=== PATIENT | female | born 1985 | race Caucasian/White ===

== ENCOUNTER 2018-03-03 18:38 | Emergency (ER) | payer SELFPAY ==
[2018-03-03 18:47] VITALS: BP 132/84
[2018-03-03] MEDS ORDERED: PENICILLIN G BENZATHINE 1.2 MILLION UNIT/2 ML DISP.SYRIN IM ONE (19:22)
[2018-03-03] MEDS ORDERED: DEXAMETHASONE SOD PHOS INJ 10 MG/1 ML VIAL IM ONE (19:22)
--- NOTE | 2018-03-03 19:28 | ER Document Report ---
HPI - HPI Patient complains to provider of: sore throat Pain Level: 3 Context: Patient is a 32-year-old otherwise healthy female complaining of a sore throat and body aches 5 days. Patient has had subjective fever. Hurts to swallow. No known strep exposure. Associated Symptoms: Body/muscle aches, Headache Exacerbated by: Denies Relieved by: Denies - ROS Systems Reviewed and Negative: Yes All other systems reviewed and negative - CONSTITUTIONAL Constitutional: REPORTS: Fever - EENT EENT: REPORTS: Sore Throat - NEURO Neurology: REPORTS: Headache Past Medical History - General Information source: Patient - Social History Smoking Status: Current Some Day Smoker Frequency of alcohol use: Social Drug Abuse: None Lives with: Family Family History: Reviewed & Not Pertinent Vertical Provider Document - CONSTITUTIONAL Agree With Documented VS: Yes Exam Limitations: No Limitations - INFECTION CONTROL TRAVEL OUTSIDE OF THE [place] IN LAST 30 DAYS: No - HEENT HEENT: Atraumatic, PERRLA, Pharyngeal Exudate, Pharyngeal Tenderness, Pharyngeal Erythema - NECK Neck: Normal Inspection, Lymphadenopathy-Right - RESPIRATORY Respiratory: Breath Sounds Normal, No Respiratory Distress - CARDIOVASCULAR Cardiovascular: Regular Rate, Regular Rhythm - GI/ABDOMEN Gastrointestinal: Abdomen Soft - NEURO Level of Consciousness: Awake, Alert, Appropriate - DERM Integumentary: Warm, Dry, No Rash Course - Re-evaluation Re-evalutation: 03/03/18 19:29 No signs of peritonsillar abscess, epiglottitis. No airway compromise. Patient able to swallow and talk without difficulty. History and physical are consistent with strep tonsillitis. Patient has no money and no means of getting descriptions filled. Medicated with 1.2 million units Bicillin IM and Decadron 10 mg IM in the ED. Home care, PC and follow-up and ED return precautions discussed with patient. Patient agreeable with plan and stable for discharge - Vital Signs Vital signs: Temp Pulse Resp BP Pulse Ox 97.6 F 75 16 132/84 H 100 03/03/18 18:41 03/03/18 18:41 03/03/18 18:41 03/03/18 18:41 03/03/18 18:41 Discharge - Discharge Clinical Impression: Sore throat Condition: Stable Disposition: HOME, SELF-CARE Instructions: Antibiotic Shot ([facility]), Steroid Medication Injection Additional Instructions: lozenges, salt water gargles change toothbrush in 2 days rest and hydrate Follow-up with your primary care if symptoms persist Return to ED for any worsening of symptoms
== END 2018-03-03 20:00 | disposition home or self-care (01) ==
LOC: ER 18:38
DX: J02.9 Acute pharyngitis, unspecified (principal); M79.1 Myalgia; R51 Headache; F17.200 Nicotine dependence, unspecified, uncomplicated
CPT/HCPCS: 99282; 96372; J0561; J1100

== ENCOUNTER 2018-06-05 16:21 | Emergency (ER) | payer SELFPAY ==
[2018-06-05 16:57] LABS: AMORPHOUS SEDIMENT,URINE TRACE /HPF; APPEARANCE,URINE SLIGHTLY-CLOUDY; BILIRUBIN,URINE NEGATIVE (NEGATIVE); COLOR,URINE AMBER; GLUCOSE, URINE NEGATIVE (NEGATIVE); KETONES,URINE NEGATIVE (NEGATIVE); LEUKOCYTE ESTERASE,URINE LARGE (NEGATIVE); NITRITE,URINE POSITIVE (NEGATIVE); PROTEIN,URINE 100 mg/dL (NEGATIVE); URINE SPECIFIC GRAVITY 1.015
[2018-06-05] MEDS ORDERED: LIDOCAINE 1% INJ-PF (10 MG/ML) 30 ML SDV INFIL ONE (17:13)
[2018-06-05] MEDS ORDERED: CEFTRIAXONE INJ 1000 MG VIAL IM ONE (17:13)
--- NOTE | 2018-06-05 17:15 | ER Document Report ---
ED General - General Chief Complaint: Pain With Urination Stated Complaint: URINARY ISSUES Time Seen by Provider: 06/05/18 16:45 TRAVEL OUTSIDE OF THE [place] IN LAST 30 DAYS: No - HPI Patient complains to provider of: Dysuria Notes: Patient coming in for dysuria frequency hesitancy ongoing for approximately 1 week with no relief of Azo. Denies any fevers chills flank pain patient resting healthy upon my evaluation. - Related Data Allergies/Adverse Reactions: Iodinated Contrast- Oral and IV Dye Allergy (Verified 06/05/18 16:47) NSAIDS (Non-Steroidal Anti-Inflamma Allergy (Verified 06/05/18 16:47) Past Medical History - Social History Smoking Status: Current Some Day Smoker Chew tobacco use (# tins/day): No Frequency of alcohol use: Rare Drug Abuse: None Family History: Reviewed & Not Pertinent Patient has suicidal ideation: No Patient has homicidal ideation: No Renal/ Medical History: Denies: Hx Peritoneal Dialysis Past Surgical History: Reports: Hx Appendectomy, Hx Bowel Surgery - gastric bypass, Hx Cholecystectomy, Hx Hysterectomy Review of Systems - Review of Systems Constitutional: No symptoms reported EENT: No symptoms reported Cardiovascular: No symptoms reported Respiratory: No symptoms reported Gastrointestinal: No symptoms reported Genitourinary: Dysuria, Frequency, Hematuria, Urgency Female Genitourinary: No symptoms reported Musculoskeletal: No symptoms reported Skin: No symptoms reported Hematologic/Lymphatic: No symptoms reported Neurological/Psychological: No symptoms reported -: Yes All other systems reviewed and negative Physical Exam - Vital signs Vitals: Temp Pulse Resp BP Pulse Ox 98.0 F 85 16 130/69 H 100 06/05/18 16:38 06/05/18 16:38 06/05/18 16:38 06/05/18 16:38 06/05/18 16:38 Interpretation: Normal - General General appearance: Appears well, Alert - HEENT Head: Normocephalic, Atraumatic Eyes: Normal Pupils: PERRL - Respiratory Respiratory status: No respiratory distress Chest status: Nontender Breath sounds: Normal Chest palpation: Normal - Cardiovascular Rhythm: Regular Heart sounds: Normal auscultation Murmur: No - Abdominal Inspection: Normal Distension: No distension Bowel sounds: Normal Tenderness: Nontender Organomegaly: No organomegaly - Back Back: Normal, Nontender - Extremities General upper extremity: Normal inspection, Nontender, Normal color, Normal ROM , Normal temperature General lower extremity: Normal inspection, Nontender, Normal color, Normal ROM , Normal temperature, Normal weight bearing. No: Suzan's sign - Neurological Neuro grossly intact: Yes Cognition: Normal Orientation: AAOx4 Perry Coma Scale Eye Opening: Spontaneous Perry Coma Scale Verbal: Oriented Cyndy Coma Scale Motor: Obeys Commands Perry Coma Scale Total: 15 Speech: Normal Motor strength normal: LUE, RUE, LLE, RLE Sensory: Normal - Psychological Associated symptoms: Normal affect, Normal mood - Skin Skin Temperature: Warm Skin Moisture: Dry Skin Color: Normal Course - Re-evaluation Re-evalutation: 06/05/18 20:47 Urinalysis does show signs of urinary tract infection with hematuria. Because of the timing of the results I recommended to the patient that she receive a IM shot of Rocephin prescription for ciprofloxacin that she can filler picker tomorrow W patient will have 24 hours of antibiotic coverage. Patient agrees with this treatment course patient will be discharged home. - Vital Signs Vital signs: Temp Pulse Resp BP Pulse Ox 98.0 F 96 18 118/61 98 06/05/18 17:17 06/05/18 17:17 06/05/18 17:17 06/05/18 17:17 06/05/18 17:17 - Laboratory Laboratory results interpreted by me: 06/05/18 16:35 Urine Protein 100 H Urine Blood SMALL H Urine Nitrite POSITIVE H Urine Urobilinogen 2.0 H Ur Leukocyte Esterase LARGE H Urine Ascorbic Acid 40 H Discharge - Discharge Clinical Impression: UTI (urinary tract infection) Qualifiers: Urinary tract infection type: acute cystitis Hematuria presence: with hematuria Qualified Code(s): N30.01 - Acute cystitis with hematuria Disposition: HOME, SELF-CARE Instructions: Urinary Tract Infection ([facility]) Additional Instructions: Your urinalysis does show signs of urinary tract infection. Please take antibiotics to completion. Return to ER symptoms worsen. Prescriptions: Ciprofloxacin HCl [Cipro 500 mg Tablet] 500 mg PO BID #14 tablet Forms: Return to Work
[2018-06-05 17:18] VITALS: BP 118/61
== END 2018-06-05 17:27 | disposition home or self-care (01) ==
LOC: ER 16:21
DX: N30.01 Acute cystitis with hematuria (principal); F17.200 Nicotine dependence, unspecified, uncomplicated; Z98.84 Bariatric surgery status; Z90.49 Acquired absence of other specified parts of digestive tract; Z90.710 Acquired absence of both cervix and uterus
CPT/HCPCS: 99283; 96372; 87086; 81025; 87088; 81001; 87186; J3490; J0696

== ENCOUNTER 2018-12-05 00:37 | Emergency (ER) | payer SELFPAY ==
--- NOTE | 2018-12-05 01:25 | ER Document Report ---
ED General - General Chief Complaint: Cough Stated Complaint: CONGESTION Time Seen by Provider: 12/05/18 01:10 Primary Care Provider: STEWART KRISHNAMURTHY DO [NO LOCAL MD] - Follow up in 3-5 days (primary care. ) Notes: Patient is a 33-year-old female that presents to the emergency department for chief complaint of cough and congestion. Patient states she is been having a cough for the past several days, where she is been having rib pain associated with it, and aching in her back. She is had congestion she is tried Mucinex, without much improvement. She is mainly worried about the cough, not getting much better. She states she has had a sick contact, her has had similar symptoms. She denies any any fevers, chills, night sweats, chest pain, difficulty breathing, nausea, vomiting or abdominal pain. No other complaints at this time. She currently rates her pain as a 3 out of 10, worse with heavy cough. Past Medical History: Seasonal allergies Past Surgical History: Appendectomy, gastric bypass surgery Social History: Former smoker, quit several years ago, denies alcohol or drug use. Family History: Reviewed and noncontributory for presenting illness Allergies: Reviewed, see documented allergy list. REVIEW OF SYSTEMS: Other than noted above, the 12 point review of systems was reviewed with the patient and were negative, all pertinent findings are included in the HPI. PHYSICAL EXAMINATION: Vital signs reviewed, nursing noted reviewed. GENERAL: Well-appearing, well-nourished and in no acute distress. HEAD: Atraumatic, normocephalic. EYES: Eyes appear normal, extraocular movements intact, sclera anicteric, conjunctiva are normal. ENT: nares patent, oropharynx clear without exudates. Moist mucous membranes. NECK: Normal range of motion, supple without lymphadenopathy LUNGS: Breath sounds clear to auscultation bilaterally and equal. No wheezes rales or rhonchi. Dry cough noted on exam. HEART: Regular rate and rhythm without murmurs ABDOMEN: Soft, nontender, normoactive bowel sounds. No rebound, guarding, or rigidity. No masses appreciated. EXTREMITIES: Nontender, good range of motion, no pitting or edema. NEUROLOGICAL: No focal neurological deficits. Moves all extremities spontaneously Motor and sensory grossly intact on exam. PSYCH: Normal mood, normal affect. SKIN: Warm, Dry, normal turgor, no rashes or lesions noted on exposed skin TRAVEL OUTSIDE OF THE [place] IN LAST 30 DAYS: No - Related Data Allergies/Adverse Reactions: Iodinated Contrast- Oral and IV Dye Allergy (Verified 06/05/18 16:47) NSAIDS (Non-Steroidal Anti-Inflamma Allergy (Verified 06/05/18 16:47) Past Medical History - Social History Smoking Status: Unknown if Ever Smoked Family History: Reviewed & Not Pertinent Patient has suicidal ideation: No Patient has homicidal ideation: No Renal/ Medical History: Denies: Hx Peritoneal Dialysis Past Surgical History: Reports: Hx Appendectomy, Hx Bowel Surgery - gastric bypass, Hx Cholecystectomy, Hx Hysterectomy Physical Exam - Vital signs Vitals: Temp Pulse Resp BP Pulse Ox 98.0 F 88 18 125/73 100 12/05/18 00:51 12/05/18 00:51 12/05/18 00:51 12/05/18 00:51 12/05/18 00:51 Course - Re-evaluation Re-evalutation: Patient seen and examined vital signs reviewed. Patient was evaluated and treated as appropriate for the patient's presenting symptoms and complaint, with consideration of any critical or life threatening conditions that may be associated with their obtained history and exam as noted above. Patient was treated with p.o. Robaxin, Tessalon Perle The patient was re-evaluated and was stable, chest x-ray negative for pneumonia Evaluation was most consistent with URI, patient prescribed codeine with mucinex, and given prescription for prednisone to take for 5 days and advised to follow-up with her primary care. Plan of care was discussed with the patient at this point, after careful consideration I feel that that patient can be discharged from the emergency department, the patient was educated treatments and reasons to return to the emergency department based on their presumed diagnosis as noted above, they were advised to followup with a primary care physician in 2-3 days. Patient was agreeable to plan of care. *Note is created using voice recognition software and may contain spelling, syntax or grammatical errors. Chest X-Ray 12/05/18 01:16 IMPRESSION: Negative chest copyright 2011 [employer]- All Rights Reserved - Vital Signs Vital signs: Temp Pulse Resp BP Pulse Ox 98.2 F 86 15 128/70 H 100 12/05/18 02:18 12/05/18 02:18 12/05/18 02:18 12/05/18 02:18 12/05/18 02:18 Discharge - Discharge Clinical Impression: Cough URI (upper respiratory infection) Qualifiers: URI type: unspecified URI Qualified Code(s): J06.9 - Acute upper respiratory infection, unspecified Condition: Stable Disposition: HOME, SELF-CARE Instructions: Upper Respiratory Illness ([facility]) Additional Instructions: Please follow-up with your primary care physician, take all prescribed medications as directed. If your symptoms are worsening, or not improving you should return to the emergency department to be reevaluated. Prescriptions: Codeine Phosphate/Guaifenesin [Codeine-Guaifen 10-100 mg/5 ml] 5 ml PO Q6H PRN #75 PRN Reason: Cough RX: Prednisone [Deltasone 10 mg Tablet] 40 mg PO DAILY #20 tablet Forms: Return to Work Referrals: STEWART KRISHNAMURTHY DO [NO LOCAL MD] - Follow up in 3-5 days (primary care. )
--- NOTE | 2018-12-05 01:46 | RADIOLOGY REPORT (SQ) ---
EXAM DESCRIPTION: XR CHEST 2 VIEWS COMPLETED DATE/TME: 12/05/2018 01:16 CLINICAL HISTORY: 33 years, Female, cough COMPARISON: None. NUMBER OF VIEWS: 2 TECHNIQUE: 2 views of the chest LIMITATIONS: None. FINDINGS: Heart size normal. Lungs clear. No pneumothorax IMPRESSION: Negative chest copyright 2010 [employer]- All Rights Reserved
[2018-12-05] MEDS ORDERED: BENZONATATE 100 MG CAPSULE PO ONE (01:55)
[2018-12-05] MEDS ORDERED: METHOCARBAMOL 750 MG TABLET PO ONE (01:56)
[2018-12-05 02:20] VITALS: BP 128/70
== END 2018-12-05 02:19 | disposition home or self-care (01) ==
LOC: ER 00:37
DX: J06.9 Acute upper respiratory infection, unspecified (principal); Z98.84 Bariatric surgery status; Z90.49 Acquired absence of other specified parts of digestive tract; Z90.710 Acquired absence of both cervix and uterus
CPT/HCPCS: 99283; 71046; J3490

== ENCOUNTER 2019-03-01 16:47 | Emergency (ER) | payer BC ==
[2019-03-01] MEDS ORDERED: ONDANSETRON HCL INJ/PF 4 MG/2 ML SDV IV ONE (17:28)
[2019-03-01] MEDS ORDERED: MORPHINE SULFATE 10 MG/ML INJ IV ONE (17:28)
[2019-03-01] MEDS ORDERED: NORMAL SALINE 1000 ML 1,000 ML IV ONE (17:28)
--- NOTE | 2019-03-01 17:29 | ER Document Report ---
ED Medical Screen (RME) - General Chief Complaint: Flank Pain Stated Complaint: FLANK PAIN Time Seen by Provider: 03/01/19 17:26 Mode of Arrival: Ambulatory Information source: Patient Notes: Patient presents complaining of right flank pain for the past 3 days that radiates into the groin. Patient states she had a right lower abdominal pain for the past 5 days. Patient reports nausea with no vomiting or diarrhea. Patient reports fever of 100.9 last night. Patient complains of dysuria and difficulty urinating. Patient states she was treated for UTI about 5 months ago and is not certain that her UTI symptoms have completely cleared up. hx: Gastric bypass, hysterectomy, appendectomy, cholecystectomy I have greeted and performed a rapid initial assessment of this patient. A comprehensive ED assessment and evaluation of the patient, analysis of test results and completion of the medical decision making process will be conducted by additional ED providers. TRAVEL OUTSIDE OF THE [place] IN LAST 30 DAYS: No - Related Data Allergies/Adverse Reactions: Iodinated Contrast- Oral and IV Dye Allergy (Verified 06/05/18 16:47) NSAIDS (Non-Steroidal Anti-Inflamma Allergy (Verified 06/05/18 16:47) Past Medical History - Social History Frequency of alcohol use: None Drug Abuse: None Renal/ Medical History: Denies: Hx Peritoneal Dialysis Past Surgical History: Reports: Hx Appendectomy, Hx Bowel Surgery - gastric bypass, Hx Cholecystectomy, Hx Hysterectomy Physical Exam - Vital signs Vitals: Temp Pulse Resp BP Pulse Ox 99.5 F 112 H 16 111/82 94 03/01/19 17:10 03/01/19 17:10 03/01/19 17:10 03/01/19 17:10 03/01/19 17:10 - Back Back: CVA tenderness - Right Course - Vital Signs Vital signs: Temp Pulse Resp BP Pulse Ox 99.5 F 112 H 16 111/82 94 03/01/19 17:10 03/01/19 17:10 03/01/19 17:10 03/01/19 17:10 03/01/19 17:10
[2019-03-01 17:48] LABS: ABSOLUTE EOSINOPHILS # (AUTO) 0.2 10^3/uL (0.0-0.6); ABSOLUTE LYMPHOCYTES (AUTO) 1.5 10^3/uL (0.5-4.7); ABSOLUTE MONOCYTES (AUTO) 0.2 10^3/uL (0.1-1.4); ABSOLUTE NEUT (AUTO) 6.1 10^3/uL (1.7-8.2); BASOPHILS % (AUTO) 0.5 % (0-2); HEMATOCRIT 25.1 % (36.0-47.0); LYMPHOCYTES % (AUTO) 19.3 % (13-45); MEAN CORPUSCULAR HEMOGLOBIN 20.6 pg (27.0-33.4); MEAN CORPUSCULAR HGB CONC 31.3 g/dL (32.0-36.0); MEAN CORPUSCULAR VOLUME 66 fl (80-97); MONOCYTES % (AUTO) 2.3 % (3-13); PLATELET COUNT 371 10^3/uL (150-450); RED BLOOD COUNT 3.81 10^6/uL (3.72-5.28); RED CELL DISTRIBUTION WIDTH 18.3 % (11.5-14.0); SEGMENTED NEUTROPHILS % (AUTO) 75.9 % (42-78); TOTAL CELLS COUNTED % (AUTO) 100 %
[2019-03-01 17:55] LABS: HEMOGLOBIN 7.9 g/dL (12.0-15.5)
[2019-03-01 17:55] LABS: AMORPHOUS SEDIMENT,URINE TRACE /HPF; APPEARANCE,URINE CLOUDY; BILIRUBIN,URINE NEGATIVE (NEGATIVE); COLOR,URINE YELLOW; GLUCOSE, URINE NEGATIVE (NEGATIVE); KETONES,URINE NEGATIVE (NEGATIVE); LEUKOCYTE ESTERASE,URINE LARGE (NEGATIVE); NITRITE,URINE POSITIVE (NEGATIVE); PROTEIN,URINE 30 mg/dL (NEGATIVE); URINE SPECIFIC GRAVITY 1.013; UROBILINOGEN,URINE NEGATIVE mg/dL (<2.0)
[2019-03-01 18:05] LABS: ALANINE AMINOTRANSFERASE 27 U/L (9-52); ALBUMIN 4.2 g/dL (3.5-5.0); ALKALINE PHOSPHATASE 87 U/L (38-126); ANION GAP 9 (5-19); ASPARTATE AMINO TRANSFERASE 32 U/L (14-36); BILIRUBIN,DIRECT 0.2 mg/dL (0.0-0.4); BILIRUBIN,TOTAL 0.2 mg/dL (0.2-1.3); BLOOD UREA NITROGEN 13 mg/dL (7-20); CALCIUM 9.1 mg/dL (8.4-10.2); CARBON DIOXIDE 26 mmol/L (22-30); CHLORIDE 103 mmol/L (98-107); GLUCOSE 90 mg/dL (75-110); LIPASE 78.9 U/L (23-300); POTASSIUM 4.5 mmol/L (3.6-5.0); SODIUM 138.1 mmol/L (137-145); TOTAL PROTEIN 7.2 g/dL (6.3-8.2)
--- NOTE | 2019-03-01 18:05 | RADIOLOGY REPORT (SQ) ---
EXAM DESCRIPTION: CT ABD/PELVIS NO ORAL OR IV COMPLETED DATE/TIME: 03/01/2019 5:50 pm REASON FOR STUDY: R flank, RLQ pain COMPARISON: None. TECHNIQUE: CT scan of the abdomen and pelvis performed without intravenous or oral contrast. Images reviewed with lung, soft tissue, and bone windows. Reconstructed coronal and sagittal MPR images revi ewed. All images stored on PACS. All CT scanners at this facility use dose modulation, iterative reconstruction, and/or weight based d osing when appropriate to reduce radiation dose to as low as reasonably achievable (ALARA). [facility]: Dose Right [facility]: CareDose [facility]: Dose Right [facility]: Teradose 4D [facility]: PowerPractical RADIATION DOSE: CT Rad equipment meets quality standard of care and radiation dose reduction techniq ues were employed. CTDIvol: 10.9 mGy. DLP: 589 mGy-cm.mGy. LIMITATIONS: None. FINDINGS: LOWER CHEST: No significant findings. No nodules or infiltrates. NON-CONTRASTED LIVER, SPLEEN, ADRENALS: Evaluation limited by lack of IV contrast. No identified sign ificant masses. PANCREAS: No masses. No peripancreatic inflammatory changes. GALLBLADDER: Surgically absent. RIGHT KIDNEY AND URETER: No cysts identified. No solid masses. No calcified stones. Mild- moderate h ydronephrosis - hydroureter. LEFT KIDNEY AND URETER: No cysts identified. No solid masses. No calcified stones. No hydronephrosis or hydroureter. AORTA AND RETROPERITONEUM: No aneurysm. No retroperitoneal masses or adenopathy. BOWEL AND PERITONEAL CAVITY: No obvious masses or inflammatory changes. No free fluid. APPENDIX: Not visualized. PELVIS, BLADDER, AND ABDOMINAL WALL:Prior hysterectomy No free fluid. Unremarkable bladder. BONES: No acute findings. Moderate degenerative disc disease at the L5-S1 level. OTHER: No other significant finding. IMPRESSION: No calcified stones identified. Mild- moderate right hydronephrosis - hydroureter. TECHNICAL DOCUMENTATION: JOB ID: [id number] Quality ID # [id number]: Final reports with documentation of one or more dose reduction techniques (e.g., Au tomated exposure control, adjustment of the mA and/or kV according to patient size, use of iterative reconstruction technique) 2010 [employer]- All Rights Reserved Reading location - IP/workstation name: [email or web address]
[2019-03-01 18:45] LABS: INTERNATIONAL RATION (INR) 1.03; PROTHROMBIN TIME 13.5 SEC (11.4-15.4)
[2019-03-01 18:46] LABS: PARTIAL THROMBOPLASTIN TIME 31.3 SEC (23.5-35.8)
[2019-03-01] MEDS ORDERED: ACETAMINOPHEN 325 MG TABLET PO ONE (21:42)
[2019-03-01] MEDS ORDERED: METOCLOPRAMIDE HCL INJ/PF 10 MG/2 ML SDV IV ONE (21:42)
[2019-03-01] MEDS ORDERED: DIPHENHYDRAMINE HCL 50 MG/ML VIAL IV ONE (21:42)
[2019-03-01] MEDS ORDERED: CEFTRIAXONE 1 GM/D5W RTU 1 GM/50 ML RTUPB IV ONE (21:43)
--- NOTE | 2019-03-01 21:43 | ER Document Report ---
ED General - General Mode of Arrival: Ambulatory TRAVEL OUTSIDE OF THE [place] IN LAST 30 DAYS: No <ELIA LOGAN - Last Filed: 03/02/19 08:11> <ELIZABETH GRAY - Last Filed: 03/02/19 13:13> - General Chief Complaint: Flank Pain Stated Complaint: FLANK PAIN Time Seen by Provider: 03/01/19 17:26 Notes: 33-year-old female with history of gastric bypass surgery presents to the emergency department with chief complaint of right flank pain x3 days that r adiates around to her groin. She also has had right lower abdominal pain for the past 5 days. Patient has associated nausea with no vomiting or diarrhea. Patient had a T-max of 100.9 last night oral. She complains of significant dysuria, urinary frequency, urgency, and difficulty with urination. Patient was treated for a TACOS and in May 2018 and she does not think that her symptoms have completely cleared. She had associated chills, no acute shortness of breath or chest pain, no vomiting, no constipation or diarrhea. No other complaints. (ELIA LOGAN) - Related Data Allergies/Adverse Reactions: Iodinated Contrast- Oral and IV Dye Allergy (Verified 06/05/18 16:47) NSAIDS (Non-Steroidal Anti-Inflamma Allergy (Verified 06/05/18 16:47) Past Medical History - General Information source: Patient - Social History Smoking Status: Never Smoker Frequency of alcohol use: None Drug Abuse: None Family History: Reviewed & Not Pertinent Patient has suicidal ideation: No Patient has homicidal ideation: No Renal/ Medical History: Denies: Hx Peritoneal Dialysis Past Surgical History: Reports: Hx Appendectomy, Hx Bowel Surgery - gastric bypass, Hx Cholecystectomy, Hx Hysterectomy <ELIA LOGAN - Last Filed: 03/02/19 08:11> Review of Systems - Review of Systems Constitutional: See HPI EENT: No symptoms reported Cardiovascular: See HPI Respiratory: See HPI Gastrointestinal: See HPI Genitourinary: See HPI Female Genitourinary: See HPI Musculoskeletal: No symptoms reported Skin: No symptoms reported Hematologic/Lymphatic: No symptoms reported Neurological/Psychological: No symptoms reported <ELIA LOGAN - Last Filed: 03/02/19 08:11> Physical Exam <ELIA LOGAN - Last Filed: 03/02/19 08:11> - Vital signs Vitals: Temp Pulse Resp BP Pulse Ox 99.5 F 112 H 16 111/82 94 03/01/19 17:10 03/01/19 17:10 03/01/19 17:10 03/01/19 17:10 03/01/19 17:10 - Notes Notes: PHYSICAL EXAMINATION: Reviewed vital signs and charting by RN GENERAL: Alert, interacts well. No acute distress. HEAD: Normocephalic, atraumatic. EYES: Pupils equal and round. Extraocular movements intact. ENT: Oral mucosa moist, tongue midline. NECK: Full range of motion. Trachea midline. LUNGS: Clear to auscultation bilaterally, no wheezes, rales, or rhonchi. No respiratory distress. HEART: Tachycardia with regular rhythm. No murmur ABDOMEN: soft, general tenderness to palpation worse in suprapubic and right lower quadrants. No distention. Bowel sounds present BACK: Right CVAT EXTREMITIES: Moves all 4 extremities spontaneously. No edema, No cyanosis. PSYCH: Normal affect, normal mood. SKIN: Warm, dry, normal turgor. No rashes or lesions noted. (ELIA LOGAN) Course - Laboratory Result Diagrams: 03/02/19 07:00 03/02/19 07:00 <ELIA LOGAN - Last Filed: 03/02/19 08:11> - Laboratory Result Diagrams: 03/02/19 07:00 03/02/19 07:00 <ELIZABETH GRAY - Last Filed: 03/02/19 13:13> - Re-evaluation Re-evalutation: 03/01/19 21:48 Patient is well-appearing and no pallor present. She denies any dizziness/lightheadedness/weakness. Her initial hemoglobin was 7.9 but she does have a history of a gastric bypass. There is no other recordings in the system to trend. Plan is to get a repeat CBC one time as it is been about 5 hours. She is also complaining of a severe headache and does have history of migraine so I have ordered her IV Reglan and Benadryl with Tylenol as she cannot take NSAIDs secondary to her gastric bypass. Also, she has a significant UTI and on CT had a moderate hydronephrosis without any perinephric stranding. Plan to give her Rocephin 1 g IV. 03/02/19 00:44 [address] spoke with Dr. Barreto, hospitalist, who suggested that the patient needed urologic support and since we do not have urology professional [employer] scout he was not comfortable admitting the patient. I called [facility] who told me that they were on diversion. I then called [facility] to initiate transfer and am awaiting a return call from the hospitalist there. 03/02/19 00:[address] Majano, urologist on-call, who stated that yes the patient would probably need a cystoscopy and in general require IV antibiotics for her pyelonephritis. I am still awaiting return call from hospitalist. 03/02/19 02:[address] Hines, hospitalist at [facility], who accepted the patient said that she was going to try to find her placement at [facility] of the [facility]. I received an update so there was no bed placement available until possibly after morning discharges at their facilities. Regardless the patient has been accepted for transfer. 03/02/19 07:43 Patient is still waiting for transfer at this time. Patient did receive 1 unit of packed red blood cells overnight and that is completed. A repeat CBC was done and hemoglobin was 8.5 indicating an appropriate response. Patient has a high RDW with a microcytic anemia and I suspect the etiology is most likely iron deficiency, but I am unable to explain the precipitous drop in her hemoglobin yesterday. 03/02/19 07:58 03/02/19 08:11 Patient signed out to Elizabeth Gray NP, on day shift. No update on bed assignment at this time. (ELIA LOGAN) 03/02/19 10:30 Called and spoke with hospitalist Dr. Lynn from [facility] which is a [facility]. Patient's CT scan report and diagnostic test results were discussed with Dr. Lynn as well as patient status. Dr. Lynn feels that they can accept her at their facility. Dr. Lynn advised of concern about need for urology consultation. Dr. Lynn feels that they can manage patient at their facility at this time. 03/02/19 10:40 Patient updated regarding plan for transfer at this time. Patient does complain of continued flank pain as well as headache. Additional medications ordered. 03/02/19 12:[address] Church regarding patient's preliminary positive urine and blood culture that is positive for gram-negative rods. Recommends adding on Levaquin IV at this time. 03/02/19 13:12 Patient reports headache pain is somewhat improved and feels that it may be attributed to not having anything to eat over the past 2 days. Meal tray has been ordered for patient. Patient reports flank pain is improved after dose of medication. Patient is stable for transfer at this time. (ELIZABETH GRAY) - Vital Signs Vital signs: Temp Pulse Resp BP Pulse Ox 98.5 F 93 18 112/63 96 03/02/19 09:32 03/02/19 02:46 03/02/19 09:32 03/02/19 09:32 03/02/19 09:32 - Laboratory Laboratory results interpreted by me: 03/01/19 03/01/19 03/01/19 17:10 17:20 18:51 RBC Hgb 7.9 L Hct 25.1 L MCV 66 L MCH 20.6 L MCHC 31.3 L RDW 18.3 H Seg Neutrophils % Lymphocytes % Monocytes % 2.3 L Urine Protein 30 H Urine Blood LARGE H Urine Nitrite POSITIVE H Ur Leukocyte Esterase LARGE H Crossmatch See Detail 03/01/19 03/02/19 21:45 07:00 RBC 3.52 L Hgb 7.2 L 8.5 L Hct 23.1 L 26.8 L MCV 66 L 68 L MCH 20.4 L 21.6 L MCHC 31.0 L 31.6 L RDW 18.2 H 20.3 H Seg Neutrophils % 78.9 H Lymphocytes % 12.9 L Monocytes % Urine Protein Urine Blood Urine Nitrite Ur Leukocyte Esterase Crossmatch Discharge <ELIA LOGAN - Last Filed: 03/02/19 08:11> <ELIZABETH GRAY - Last Filed: 03/02/19 13:13> - Discharge Clinical Impression: Pyelonephritis, Flank pain Headache Qualifiers: Headache type: unspecified Headache chronicity pattern: acute headache In tractability: not intractable Qualified Code(s): R51 - Headache Condition: Good Disposition: [facility]
[2019-03-01 22:03] LABS: ABSOLUTE EOSINOPHILS # (AUTO) 0.1 10^3/uL (0.0-0.6); ABSOLUTE MONOCYTES (AUTO) 0.6 10^3/uL (0.1-1.4); BASOPHILS % (AUTO) 0.5 % (0-2); EOSINOPHILS % (AUTO) 0.7 % (0-6); HEMATOCRIT 23.1 % (36.0-47.0); LYMPHOCYTES % (AUTO) 13.4 % (13-45); MEAN CORPUSCULAR HEMOGLOBIN 20.4 pg (27.0-33.4); MEAN CORPUSCULAR VOLUME 66 fl (80-97); MONOCYTES % (AUTO) 8.3 % (3-13); PLATELET COUNT 302 10^3/uL (150-450); RED BLOOD COUNT 3.52 10^6/uL (3.72-5.28); RED CELL DISTRIBUTION WIDTH 18.2 % (11.5-14.0); SEGMENTED NEUTROPHILS % (AUTO) 77.1 % (42-78); TOTAL CELLS COUNTED % (AUTO) 100 %; WHITE BLOOD COUNT 7.8 10^3/uL (4.0-10.5)
[2019-03-01 22:06] LABS: HEMOGLOBIN 7.2 g/dL (12.0-15.5)
[2019-03-01] MEDS ORDERED: NORMAL SALINE 250 ML IV PRN (23:13)
[2019-03-02] MEDS ORDERED: FENTANYL CITRATE INJ/PF 100 MCG/2 ML AMPUL IV ONE ×2 (05:35→10:58)
[2019-03-02 07:17] LABS: ABSOLUTE EOSINOPHILS # (AUTO) 0.1 10^3/uL (0.0-0.6); ABSOLUTE LYMPHOCYTES (AUTO) 1.2 10^3/uL (0.5-4.7); ABSOLUTE MONOCYTES (AUTO) 0.6 10^3/uL (0.1-1.4); ABSOLUTE NEUT (AUTO) 7.1 10^3/uL (1.7-8.2); BASOPHILS % (AUTO) 0.3 % (0-2); EOSINOPHILS % (AUTO) 1.2 % (0-6); HEMATOCRIT 26.8 % (36.0-47.0); HEMOGLOBIN 8.5 g/dL (12.0-15.5); LYMPHOCYTES % (AUTO) 12.9 % (13-45); MEAN CORPUSCULAR HEMOGLOBIN 21.6 pg (27.0-33.4); MEAN CORPUSCULAR HGB CONC 31.6 g/dL (32.0-36.0); MEAN CORPUSCULAR VOLUME 68 fl (80-97); MONOCYTES % (AUTO) 6.7 % (3-13); PLATELET COUNT 302 10^3/uL (150-450); RED BLOOD COUNT 3.92 10^6/uL (3.72-5.28); RED CELL DISTRIBUTION WIDTH 20.3 % (11.5-14.0); SEGMENTED NEUTROPHILS % (AUTO) 78.9 % (42-78); TOTAL CELLS COUNTED % (AUTO) 100 %
[2019-03-02 07:43] LABS: ANION GAP 5 (5-19); BLOOD UREA NITROGEN 9 mg/dL (7-20); CALCIUM 8.8 mg/dL (8.4-10.2); CARBON DIOXIDE 29 mmol/L (22-30); CHLORIDE 105 mmol/L (98-107); GLUCOSE 90 mg/dL (75-110); POTASSIUM 4.4 mmol/L (3.6-5.0); SODIUM 139.3 mmol/L (137-145)
[2019-03-02] MEDS ORDERED: ACETAMINOPHEN 325 MG TABLET PO ONE (10:58)
[2019-03-02] MEDS ORDERED: VANCOMYCIN HCL INJ 1000 MG VIAL IV ONE (12:14)
[2019-03-02] MEDS ORDERED: LEVOFLOXACIN 750 MG/D5W RTU 750 MG/150 ML RTUPB IV ONE (12:20)
[2019-03-02 13:47] VITALS: BP 118/87
== END 2019-03-02 14:53 | disposition short-term general hospital (02) ==
LOC: ER 16:47
DX: N12 Tubulo-interstitial nephritis, not specified as acute or chronic (principal); R51 Headache; N13.30 Unspecified hydronephrosis; D50.9 Iron deficiency anemia, unspecified; R11.0 Nausea; R00.0 Tachycardia, unspecified; Z98.84 Bariatric surgery status; Z91.040 Latex allergy status; Z88.8 Allergy status to other drugs, medicaments and biological substances; Z86.69 Personal history of other diseases of the nervous system and sense organs
CPT/HCPCS: 96376; 99285; 96361; 96375; 96365; 96366; 96367; 86900; 86901; 36415; 87040; 87086; 36430; 86850; 83690; 85025; 85610; 85730; 87077; 87088; 80048; 80053; 81001; 87186; 86920; 74176; P9016; J1200; J3010; J2765; J2270; J2405; J7030; J7050; J0696; J1956